=== PATIENT | female | born 1955 | race Caucasian/White ===

== ENCOUNTER 2021-07-21 08:14 | Inpatient (IN) | payer OTHER, SELFPAY ==
[~2021-07-21] VITALS: Ht 154.9 cm; Wt 59.0 kg
[2021-07-21 08:19] VITALS: BP_SYST 146
[2021-07-21] MEDS ORDERED: MORPHINE 2 MG/ML INJ. SYRINGE IVP ONE (09:45)
[2021-07-21] MEDS ORDERED: NACL 0.9% 1,000 ML IV ONE (09:45)
[2021-07-21] MEDS ORDERED: ONDANSETRON HCL 4 MG/2 ML VIAL IVP ONE (09:45)
[2021-07-21 10:03] LABS: BASOPHILS % (AUTO) 0.7 % (0.0-2.0); EOSINOPHILS # (AUTO) 0.3 K/uL (0.0-0.4); EOSINOPHILS % (AUTO) 3.9 % (0.0-4.0); HEMATOCRIT 42.7 % (36-48); HEMOGLOBIN 14.1 g/dL (12.0-16.0); LYMPHOCYTES # (AUTO) 1.9 K/uL (1.0-5.5); LYMPHOCYTES % (AUTO) 26.3 % (20.5-51.5); MEAN CORPUSCULAR HEMOGLOBIN 29 pg (27-31); MEAN CORPUSCULAR HGB CONC 33 % (32-36); MEAN CORPUSCULAR VOLUME 88 fL (79.0-98.0); MONOCYTES # (AUTO) 0.4 K/uL (0.0-1.0); NEUTROPHILS # (AUTO) 4.5 K/uL (1.8-7.7); NEUTROPHILS % (AUTO) 63.1 % (40.0-70.0); PLATELET COUNT (AUTO) 188 K/uL (130-430); RED BLOOD CELL COUNT(AUTO) 4.84 MIL/uL (4.2-6.2); WHITE BLOOD COUNT (AUTO) 7.1 K/uL (4.8-10.8)
[2021-07-21 10:27] LABS: CALCIUM 10.1 mg/dL (8.4-11.0); CREATININE 0.65 mg/dL (0.55-1.30); POTASSIUM 3.5 mmol/L (3.5-5.1)
[2021-07-21] MEDS ORDERED: MAGNESIUM SULFATE 50 ML IV PRN (10:30)
[2021-07-21] MEDS ORDERED: ONDANSETRON HCL 4 MG/2 ML VIAL IVP PRN (10:30)
[2021-07-21] MEDS ORDERED: POTASSIUM CHLORIDE 20 MEQ TAB.PRT.SR PO PRN (10:30)
[2021-07-21] MEDS ORDERED: MORPHINE 2 MG/ML INJ. SYRINGE IVP PRN ×2 (10:30)
[2021-07-21] MEDS ORDERED: INSULIN LISPRO SLIDING SCALE 100 UNITS/ML VIAL (humaLOG) SUBCUT PRN (10:30)
[2021-07-21] MEDS ORDERED: DOCUSATE SODIUM 100 MG CAPSULE PO PRN (10:30)
[2021-07-21] MEDS ORDERED: DEXTROSE 50% JECT 50 ML DISP.SYRIN IVP PRN (10:30)
[2021-07-21] MEDS ORDERED: MUPIROCIN 2% TOPICAL OINTMENT 22 GM NS PRN (10:30)
[2021-07-21] MEDS ORDERED: ACETAMINOPHEN 325 MG TABLET PO PRN ×2 (10:30→13:45)
[2021-07-21] MEDS ORDERED: LORazepam 2 MG/ML VIAL IVP PRN (10:30)
[2021-07-21] MEDS ORDERED: ZOLPIDEM TARTRATE 5 MG TABLET PO PRN (10:30)
[2021-07-21 10:32] LABS: TOTAL BILIRUBIN 0.5 mg/dL (0.0-1.0)
[2021-07-21] MEDS ORDERED: VITD2000 GT (12:01)
[2021-07-21] MEDS ORDERED: FOLI-43 GT (12:01)
[2021-07-21] MEDS ORDERED: ASPI-1393 PO (12:01)
[2021-07-21] MEDS ORDERED: BACL10TA GT (12:01)
[2021-07-21] MEDS ORDERED: FAMO40TA71 GT (12:01)
[2021-07-21] MEDS ORDERED: ONDA-8 TL (12:01)
[2021-07-21] MEDS ORDERED: NIAC500T2 GT (12:01)
[2021-07-21] MEDS ORDERED: INSU100I26 SQ (12:01)
[2021-07-21] MEDS ORDERED: HYDR-3917 GT (12:01)
[2021-07-21] MEDS ORDERED: INSU100V42 SQ (12:01)
[2021-07-21] MEDS ORDERED: CYAN100010 GT (12:01)
[2021-07-21] MEDS ORDERED: MULT15TA3 GT (12:01)
[2021-07-21] MEDS ORDERED: LIP40 GT (12:01)
[2021-07-21] MEDS ORDERED: FERR-69 GT (12:01)
[2021-07-21 13:17] VITALS: BP_SYST 120
[2021-07-21] MEDS: D5NS 1,000 ML IV SCH (14:28)
[2021-07-21 21:19] VITALS: BP_SYST 134
[2021-07-22 01:03] VITALS: BP_SYST 133
[2021-07-22] MEDS: D5NS 1,000 ML IV SCH ×3 (03:12→17:46)
[2021-07-22 08:00] VITALS: BP_SYST 139
[2021-07-22] MEDS ORDERED: MEPERIDINE 100 MG INJ. 100 MG/ML VIAL ONE (10:53)
[2021-07-22] MEDS ORDERED: MIDAZOLAM HCL 5 MG/5 ML VIAL ONE (10:54)
[2021-07-22 12:00] VITALS: BP_SYST 147
[2021-07-22 16:00] VITALS: BP_SYST 137
[2021-07-22 19:11] VITALS: BP_SYST 137
== END 2021-07-22 20:00 | DRG 252 ==
LOC: SED 08:14 → SMU 11:03
PROVIDERS: ADMIT Internal Medicine; ATTEND General Practice
PROC: 0DH64UZ Insertion of Feeding Device into Stomach, Percutaneous Endoscopic Approach (ICD-10-PCS; principal; 2021-07-22 11:00)
DX: K94.23 Gastrostomy malfunction (principal); R13.10 Dysphagia, unspecified; E11.9 Type 2 diabetes mellitus without complications; K21.9 Gastro-esophageal reflux disease without esophagitis; Z20.822 Contact with and (suspected) exposure to COVID-19; K29.70 Gastritis, unspecified, without bleeding; E66.9 Obesity, unspecified; E78.5 Hyperlipidemia, unspecified; Z74.01 Bed confinement status; Z68.24 Body mass index [BMI] 24.0-24.9, adult
CPT/HCPCS: 36415; 80053; 82962; 85025; 87081; 96374; 96375; 99285; J2175; J2250; J2270; J2405